=== PATIENT | female | born 1965 | race Caucasian/White ===

== ENCOUNTER 2024-04-05 13:40 | Inpatient (IN) | payer SELFPAY ==
[~2024-04-05 13:40] MED LIST: Iopamidol 370 76% 100 ML VIAL ONE
[2024-04-05 14:48] LABS: #Basophils 0.04 10x3/uL (0.0-0.2); #Eosinophils 0.13 10x3/uL (0.0-0.5); #Monocytes 0.44 10x3/uL (0.0-1.1); #Neutrophils 3.72 10x3/uL (1.5-8.4); %Basophils 0.6 % (0.0-2.0); %Eosinophils 2.1 % (0.0-6.0); %Lymphocytes 29.7 % (18.0-47.0); %Monocytes 7.1 % (0.0-10.0); %Neutrophils 60.3 % (40.0-75.0); Hematocrit 46.5 % (34.9-44.5); Mean Corpuscular HGB CONC 34.4 g/dL (32.0-36.0); Mean Corpuscular Hemoglobin 33.3 pg (27.0-33.0); Mean Corpuscular Volume 96.9 fL (81.6-98.3); Mean Platelet Volume 8.3 fL (7.4-10.4); Platelet Count 248 10x3/uL (150-450); RBC Distribution Width 11.9 % (11.5-14.5); White Blood Cell (WBC) Count 6.2 10x3/uL (3.5-10.5)
[2024-04-05 15:04] LABS: ALT (SGPT) 14 U/L (8-55); AST (SGOT) 15 U/L (5-34); Albumin 4.2 g/dL (3.5-5.0); Alkaline Phosphatase 57 U/L (40-110); Anion Gap 16 mmol/L (10-20); BUN (Urea Nitrogen) 11 mg/dL (9.8-20.1); Bilirubin, Total 1.6 mg/dL (0.2-1.2); Calc. Creatinine Clearance 0 mL/min (70-130); Calcium 9.6 mg/dL (7.8-10.44); Carbon Dioxide 22 mmol/L (22-29); Chloride 105 mmol/L (98-107); Estimated GFR 62; Globulin 2.5 g/dL (2.4-3.5); Glucose 92 mg/dL (70-105); Lipase 44 U/L (8-78); Potassium 4.2 mmol/L (3.5-5.1); Protein, Total 6.7 g/dL (6.0-8.3); Sodium 139 mmol/L (136-145)
[2024-04-05 15:07] LABS: Troponin I Less than 0.010 ng/mL (< 0.028)
[2024-04-05] MEDS ORDERED: Ketorolac Tromethamine 30 MG (1 mL) VIAL ONE (15:07)
[2024-04-05] MEDS ORDERED: Famotidine/PF 20 mg/2ml Vial ONE (15:08)
[2024-04-05] MEDS ORDERED: Ondansetron ODT 4 MG TAB PO PRN (17:33)
[2024-04-05] MEDS ORDERED: Acetaminophen 500 MG TAB PO PRN (18:37)
[2024-04-05] MEDS: Lactated Ringer's 1,000 ML IV SCH (19:29)
[2024-04-05] MEDS: Ketorolac Tromethamine 30 MG (1 mL) VIAL IVP SCH (19:30)
[2024-04-05] MEDS: Pantoprazole DR 40 MG TAB PO SCH (19:30)
[2024-04-05] MEDS: Enoxaparin 40 MG (0.4 mL) SYRINGE SC SCH (20:53)
[2024-04-05] MEDS: Ondansetron PF 4 MG/2 ML Vial IVP PRN (21:06)
[2024-04-05 21:13] VITALS: BMI 23.3
[2024-04-06] MEDS: Morphine 4 MG/ML VIAL SLOW IVP SCH (03:37)
[2024-04-06 04:18] LABS: ALT (SGPT) 11 U/L (8-55); AST (SGOT) 13 U/L (5-34); Albumin 3.5 g/dL (3.5-5.0); Alkaline Phosphatase 47 U/L (40-110); Anion Gap 12 mmol/L (10-20); BUN (Urea Nitrogen) 10 mg/dL (9.8-20.1); Bilirubin, Total 1.9 mg/dL (0.2-1.2); Calc. Creatinine Clearance 67 mL/min (70-130); Carbon Dioxide 26 mmol/L (22-29); Chloride 108 mmol/L (98-107); Estimated GFR 65; Globulin 2.3 g/dL (2.4-3.5); Glucose 89 mg/dL (70-105); Potassium 4.5 mmol/L (3.5-5.1); Protein, Total 5.8 g/dL (6.0-8.3); Sodium 141 mmol/L (136-145)
[2024-04-06] MEDS: Polyethylene Glycol 3350 17 GM Packet PO SCH (08:22)
[2024-04-06] MEDS: Pantoprazole DR 40 MG TAB PO SCH (08:23)
[2024-04-06] MEDS: Ketorolac Tromethamine 30 MG (1 mL) VIAL IVP PRN (09:00)
[2024-04-06 14:41] VITALS: BMI 23.3
[2024-04-07 06:49] LABS: ALT (SGPT) 12 U/L (8-55); AST (SGOT) 14 U/L (5-34); Albumin 3.7 g/dL (3.5-5.0); Alkaline Phosphatase 48 U/L (40-110); Anion Gap 14 mmol/L (10-20); BUN (Urea Nitrogen) 12 mg/dL (9.8-20.1); Bilirubin, Total 1.1 mg/dL (0.2-1.2); Calc. Creatinine Clearance 71 mL/min (70-130); Calcium 9.1 mg/dL (7.8-10.44); Carbon Dioxide 25 mmol/L (22-29); Chloride 108 mmol/L (98-107); Estimated GFR 69; Globulin 2.3 g/dL (2.4-3.5); Glucose 98 mg/dL (70-105); Potassium 4.5 mmol/L (3.5-5.1); Sodium 142 mmol/L (136-145)
[2024-04-07] MEDS ORDERED: fentaNYL 50 mcg/mL 1 mL Vial ONE (13:37)
[2024-04-07] MEDS ORDERED: Lidocaine 1% PF 5 ML VIAL ONE (13:37)
[2024-04-07 19:40] VITALS: BP 135/73; TEMP 98.3
== END 2024-04-07 20:30 | disposition home or self-care (01) | DRG 392 ==
LOC: CSHERS 13:40 → CSHTELE 17:11
PROVIDERS: ADMIT Specialist; ATTEND Specialist
PROC: 0DB68ZX Excision of Stomach, Via Natural or Artificial Opening Endoscopic, Diagnostic (ICD-10-PCS; principal; 2024-04-07)
PROC: 0D758ZZ Dilation of Esophagus, Via Natural or Artificial Opening Endoscopic (ICD-10-PCS; 2024-04-07)
DX: K22.2 Esophageal obstruction (principal); K31.84 Gastroparesis; F17.210 Nicotine dependence, cigarettes, uncomplicated; K82.8 Other specified diseases of gallbladder; R13.10 Dysphagia, unspecified; K25.9 Gastric ulcer, unspecified as acute or chronic, without hemorrhage or perforation; K29.70 Gastritis, unspecified, without bleeding; K21.9 Gastro-esophageal reflux disease without esophagitis; Z98.890 Other specified postprocedural states; Z91.040 Latex allergy status; Z79.899 Other long term (current) drug therapy; Z90.710 Acquired absence of both cervix and uterus
CPT/HCPCS: 36415; 71045; 74177; 74240; 76705; 78227; 80053; 82274; 83690; 84484; 85025; 88305; 93005; 96361; 96374; 96375; A9537; J1650; J1885; J2272; J2405; J3010; J3490; J7120; Q9967